=== PATIENT | male | born 1980 | race Caucasian/White ===

== ENCOUNTER 2021-11-11 08:57 | Outpatient (REF) | payer OTHER, SELFPAY ==
[2021-11-11 09:24] LABS: MANUAL DIFF FLAG NO
[2021-11-11 09:34] LABS: Basophils Percent Auto 0.6 % (0-2); Eosinophils Absolute Auto 0.1 X10*3/uL (0.0-0.4); Eosinophils Percent Auto 1.8 % (0-4); Hemoglobin 14.4 g/dl (14.0-18.0); Imm Gran Abs Auto 0.01 X10*3/uL (0.00-0.03); Imm Gran Pct Auto 0.2 % (0.0-0.4); Lymphocytes Absolute Auto 1.1 X10*3/uL (1.2-4.9); Lymphocytes Percent Auto 20.9 % (20-40); Mean Corpuscular HGB Conc 35.1 g/dl (31.0-36.0); Mean Corpuscular Hemoglobin 29.3 pg (27.0-33.0); Mean Corpuscular Volume 83.3 fL (80.0-98.0); Mean Platelet Volume 9.2 fL (9.4-12.4); Monocytes Absolute Auto 0.4 X10*3/uL (0.1-1.2); Monocytes Percent Auto 6.9 % (2-11); Neutrophils Absolute Auto 3.5 x10*3/uL (2.0-8.3); Neutrophils Percent Auto 69.6 % (45-73); Red Blood Count 4.92 X10*6/uL (4.60-5.80); Red Cell Distribution Width 13.9 % (11.0-16.0); White Blood Count 5.1 X10*3/uL (4.8-10.8)
[2021-11-11 09:35] LABS: Platelet Count 80 X10*3/uL (160-400)
[2021-11-11 09:43] LABS: Estimated Average Glucose 94 mg/dL; Hemoglobin A1c % 4.9 %
[2021-11-11 10:50] LABS: Alanine Aminotransferase 35 U/L (0-40); Alkaline Phosphatase 34 U/L (39-117); Anion Gap 12 (12-20); Aspartate Amino Transferase 21 U/L (5-37); Bilirubin Total 1.5 mg/dL (0.0-1.0); Blood Urea Nitrogen 16 mg/dL (9-16); Calcium 9.1 mg/dL (8.4-10.2); Carbon Dioxide 25 mmol/L (22-29); Cholesterol 125 mg/dL; Estimated Glomerular Filt Rate > 60; Glucose Random 113 mg/dL (60-115); HDL Cholesterol 33 mg/dL; LDL Cholesterol Calculated 73 mg/dl; Triglycerides 98 mg/dL
[2021-11-11 10:56] LABS: Albumin Level 4.4 g/dL (3.5-5.0); Potassium 4.6 mmol/L (3.3-5.1); Sodium 138 mmol/L (135-145)
[2021-11-11 11:09] LABS: Chloride 106 mmol/L (96-108)
== END 2021-11-11 08:58 | disposition home or self-care (01) ==
LOC: HO.LAB 08:57
PROVIDERS: PCP Family Medicine; Visit Provider Family Medicine
DX: K76.0 Fatty (change of) liver, not elsewhere classified (principal)
CPT/HCPCS: 36415; 80053; 80061; 83036; 85025

== ENCOUNTER 2023-01-07 09:18 | Outpatient (REF) | payer OTHER, SELFPAY ==
[2023-01-07 09:40] LABS: MANUAL DIFF FLAG NO
[2023-01-07 09:52] LABS: Basophils Percent Auto 0.8 % (0-2); Eosinophils Absolute Auto 0.1 X10*3/uL (0.0-0.4); Eosinophils Percent Auto 1.6 % (0-4); Hematocrit 43.1 % (42.0-52.0); Hemoglobin 15.3 g/dl (14.0-18.0); Imm Gran Abs Auto 0.02 X10*3/uL (0.00-0.03); Imm Gran Pct Auto 0.4 % (0.0-0.4); Lymphocytes Absolute Auto 1.2 X10*3/uL (1.2-4.9); Lymphocytes Percent Auto 23.9 % (20-40); Mean Corpuscular HGB Conc 35.5 g/dl (31.0-36.0); Mean Corpuscular Hemoglobin 29.7 pg (27.0-33.0); Mean Corpuscular Volume 83.7 fL (80.0-98.0); Mean Platelet Volume 10.1 fL (9.4-12.4); Monocytes Absolute Auto 0.3 X10*3/uL (0.1-1.2); Monocytes Percent Auto 6.5 % (2-11); Neutrophils Absolute Auto 3.4 x10*3/uL (2.0-8.3); Neutrophils Percent Auto 66.8 % (45-73); Red Blood Count 5.15 X10*6/uL (4.60-5.80); Red Cell Distribution Width 13.9 % (11.0-16.0); White Blood Count 5.1 X10*3/uL (4.8-10.8)
[2023-01-07 09:54] LABS: Platelet Count 88 X10*3/uL (160-400)
[2023-01-07 10:13] LABS: Cholesterol 128 mg/dL; HDL Cholesterol 31 mg/dL; LDL Cholesterol Calculated 75 mg/dl; Triglycerides 114 mg/dL
[2023-01-07 10:35] LABS: HBsAGNum1 0.46 S/CO (0.00-0.99); HIV AB/AG Nonreactive (Nonreactive); HIV Num 1 0.09 S/CO (0.00-0.99); Hepatitis B Surface Antigen Negative (Negative)
== END 2023-01-07 09:19 | disposition home or self-care (01) ==
LOC: HO.LAB 09:18
PROVIDERS: PCP Family Medicine; Visit Provider Family Medicine
DX: Z11.4 Encounter for screening for human immunodeficiency virus [HIV] (principal); Z11.59 Encounter for screening for other viral diseases; K76.0 Fatty (change of) liver, not elsewhere classified
CPT/HCPCS: 36415; 80061; 85025; 87340; 87389

== ENCOUNTER 2023-04-01 10:04 | Outpatient (AMB) | payer OTHER, SELFPAY ==
--- NOTE | 2023-04-01 10:24 | AM.OFFWIN_ITS ---
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 Patient is reporting pain in the right calf over the past week. 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 Patient recently started jogging and was noticing pain over the calf. Last night he woke up with cramping sensation in the right calf. [facility] Social History Patient Tobacco Use Status: Never used Tobacco Physical Exam Vital Signs: Last Vital Signs Temp 97.9 F 04/01/23 10:27 Pulse 66 04/01/23 10:27 BP 110/72 04/01/23 10:27 Pulse Ox 97 04/01/23 10:27 Oxygen Delivery Method Room Air 04/01/23 10:27 Extrem Other: Right leg: No visible bruising all over the calf area. Minimal discomfort. Unable to stand on 1 leg on the right side. Unable to stand on his toes on the right leg. Assessment & Plan Assessment & Plan (1) Strain of right calf muscle: Code(s): S86.811A - Strain of other muscle(s) and tendon(s) at lower leg level, right leg, initial encounter Plan: Anti-inflammatory called in. Keep leg elevated. Patient was encouraged to rest. Coding Level of Care Code Est Pt Level 3 (64292) Diagnoses Strain of right calf muscle S86.811A
[2023-04-01 10:27] VITALS: BP 110/72; PULSE 66; TEMP 36.6; O2SAT 97
== END 2023-04-01 11:36 | disposition home or self-care (01) ==
PROVIDERS: PCP Family Medicine; Visit Provider Internal Medicine
DX: S86.811A Strain of other muscle(s) and tendon(s) at lower leg level, right leg, initial encounter (principal)
CPT/HCPCS: 99213

== ENCOUNTER 2023-11-03 13:51 | Outpatient (REF) | payer OTHER, SELFPAY ==
--- NOTE | ~2023-11-03 | US_ITS ---
EXAMINATION: US SOFT TISSUE OF THE NECK CLINICAL INFORMATION: Suspected lipoma, neck mass right side. COMPARISON: None available. TECHNIQUE: Linear transducer grayscale and color Doppler examination of the right mid lateral neck lump. FINDINGS: The cutaneous, subcutaneous, muscular and fascial planes are unremarkable. No mass or fluid collection is seen. No lymphadenopathy is noted. No foreign body is seen. US/US soft tiss head and/or neck IMPRESSION: Unremarkable examination, without focal finding noted.
== END 2023-11-03 13:52 | disposition home or self-care (01) ==
LOC: HO.US 13:51
PROVIDERS: PCP Family Medicine; Visit Provider Family Medicine
DX: R22.1 Localized swelling, mass and lump, neck (principal)
CPT/HCPCS: 76536

== ENCOUNTER 2024-03-09 07:00 | Outpatient (RCR) | payer OTHER, SELFPAY | END 2024-03-09 10:24 | disposition home or self-care (01) | LOC: HO.OT 07:00 | PROVIDERS: PCP Family Medicine; Visit Provider Family Medicine | DX: M77.11 Lateral epicondylitis, right elbow (principal) | CPT/HCPCS: 97033; 97110; 97140; 97165 ==

== ENCOUNTER 2025-03-18 14:40 | Outpatient (AMB) | payer OTHER, SELFPAY ==
--- NOTE | 2025-03-18 14:43 | A.OFFVIS_ITS ---
Vital Signs 03/18/25 14:50 Height 6 ft Weight 270 lb BMI 36.6 BP 126/62 Blood Pressure Location Rt brachial Position Sitting Pulse 64 Pulse Source Pulse Oximeter Pulse Oximetry (%) 98 Oxygen Delivery Method Room Air Intake Visit Reasons: Colonoscopy screening Intake Note: New pt for initial colo screening. CC; Pt denies any GI sx or concerns at this time. No pertinent FMHx. reported per pt. 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 male with past medical history of splenomegaly, hepatomegaly, thrombocytopenia is here today for pre colonoscopy screening.? Patient was sent to us by his PCP.? This is his first colonoscopy screening.? Patient denies any gastrointestinal symptoms in the past or at present.? Denies any personal or family history of gastrointestinal disease, colon polyps, or CRC.? Patient reports that he was previously seen by Dr. Zacarias in the office and evaluated for enlarged liver and spleen and low platelet count. Patient has a family history of liver disease. Denies history of difficulty with sedation or anesthesia in the past.? Negative for history of sleep apnea.? Patient reports snoring during the night. Denies any history of cardiac, renal, pulmonary, or hepatic disease.?? No history of infectious? diseases like hepatitis A, B, C, HIV or tuberculosis.? Patient is not on any anticoagulation [facility] Medical History (Updated 03/18/25 @ 15:15 by Randi Cleary, [facility]) Splenomegaly Hepatomegaly Social History Patient Tobacco Use Status: Never used Tobacco Review of Systems Const Denies weight gain and Denies weight loss ENT Reports no additional complaints, Denies dysphagia and Denies odynophagia Card Reports no additional complaints Resp Reports no additional complaints GI Denies abdominal pain, Denies belching, Denies melena, Denies bloating, Denies change in bowel habits, Denies dysphagia, Denies excessive flatus, Denies dyspepsia, Denies heartburn, Denies diarrhea, Denies loose stools, Denies nausea, Denies odynophagia and Denies vomiting Reports no additional complaints Musc Reports no additional complaints Neuro Reports no additional complaints Psych Reports no additional complaints Endo Reports no additional complaints Physical Exam Vital Signs: Last Vital Signs Pulse 64 03/18/25 14:50 BP 126/62 03/18/25 14:50 Pulse Ox 98 03/18/25 14:50 Oxygen Delivery Method Room Air 03/18/25 14:50 BMI result Body Mass Index 36.6 Const General: healthy appearing, no acute distress and well developed Nutritional Appearance: well nourished Orientation/consciousness: patient oriented x3 HEENT Head: Yes normal to inspection, Yes normocephalic and Yes atraumatic Face and sinus: Yes normal facial exam Mouth: Normal oral and palatal mucosa present Throat: Yes posterior oropharynx normal, Yes tonsils normal and Yes uvula midline Eyes General: appearance normal, both eyes and all related structures Neck Neck: Yes normal visual inspection, Yes full ROM and Yes trachea midline Thyroid: Thyroid normal Resp Effort & Inspection: normal respiratory effort, able to speak in complete sentences, no tracheal deviation and symmetric chest movement Auscultation: clear to auscultation bilaterally Cardio Jugular venous distension: no JVD Rate: regular rate Heart sounds: S1 normal heart sound present, S2 normal heart sound present, no gallops and no murmurs GI Inspection: Yes normal to inspection and No distended Palpation (GI): Soft to palpation, not firm, nontender and No hepatosplenomegaly present Auscultation: normal bowel sounds General: Yes no CVA tenderness Back/Spine/Pelvis Back: no CVA tenderness Skin General skin exam: elasticity normal, turgor normal and dry skin Neuro General: patient oriented x3 Psych Appearance: grossly normal Mental Status: mental status grossly normal Speech and movement: Normal speech and movement present Affect: normal affect Attitude: cooperative Thought process: Normal thought process present Thought content: Normal thought content present Insight: Good insight present (Psych) Judgement: Good judgement present (Psych) Assessment & Plan Assessment & Plan (1) Screen for colon cancer: Code(s): Z12.11 - Encounter for screening for malignant neoplasm of colon (2) Hepatomegaly: Code(s): R16.0 - Hepatomegaly, not elsewhere classified Category: Medical (3) Splenomegaly: Code(s): R16.1 - Splenomegaly, not elsewhere classified Category: Medical Plan Patient denies any GI, cardiac or respiratory symptoms.? Previously seen in GI by Dr. Zacarias for hepatomegaly, splenomegaly and thrombocytopenia. We will repeat blood work as well as ultrasound with elastography. Denies any issues with anesthesia in the past.? Denies any history of sleep apnea.? No history infectious diseases in the past or present.? Not on any anticoagulation therapy.? No family or personal history of colon cancer or polyps.? Patient denies melena, hematochezia, unintentional weight loss or ribbon like stools.? Discussed at length the pre-procedure,? prep, diet & medications as well as what to expect prior, during and after the procedure.?? Stressed the importance of good bowel prep.? Recommended the use of Vaseline or Calmoseptine OTC & baby wipes with bowel movements to promote comfort.? ?Patient verbalizes understanding and agrees to plan of care.? He was given the opportunity to ask questions and all questions answered.? We will see him after the procedure.? Orders: Orders Complete Blood Count no Diff Today K21.9 - Gastro-esophageal reflux disease without esophagitis US abdomen comp w elastography Today R79.89 - Other specified abnormal findings of blood chemistry Comprehensive Met. Panel Today K21.9 - Gastro-esophageal reflux disease without esophagitis Medications: New bisacodyl (Dulcolax (bisacodyl)) take 4 tabs at noon the day before your colonoscopy 20 mg (4 x 5 mg) PO ONCE 4 tabs 0RF constipation 1 day Z12.11 - Encounter for screening for malignant ne oplasm of colon polyethylene glycol 3350 (Miralax) As directed by gastroenterology department at [facility] 238 grams PO ONCE 238 grams 0RF Z12.11 - Encounter for screening for malignant neoplasm of colon Coding Level of Care Code New Pt Level 3 (92587) Diagnoses Screen for colon cancer Z12.11 Hepatomegaly R16.0 Splenomegaly R16.1 Time Spent (min) 40 Comment 30 minutes spent with patient and additional 10 minutes spent reviewing his records
[2025-03-18 14:50] VITALS: BP 126/62; PULSE 64; O2SAT 98; BMI 36.6
== END 2025-03-18 15:29 | disposition home or self-care (01) ==
LOC: HO.HGI 14:41
PROVIDERS: PCP Family Medicine; Visit Provider Nurse Practitioner Family
DX: Z01.818 Encounter for other preprocedural examination (principal); Z12.11 Encounter for screening for malignant neoplasm of colon; R16.0 Hepatomegaly, not elsewhere classified; R16.1 Splenomegaly, not elsewhere classified
CPT/HCPCS: S0285

== ENCOUNTER 2025-05-21 08:11 | Outpatient (REF) | payer OTHER, SELFPAY ==
--- NOTE | ~2025-05-21 | US_ITS ---
EXAMINATION: US COMPLETE ABDOMEN WITH LIVER ELASTOGRAPHY CLINICAL INFORMATION: Abnormal LFTs. COMPARISON: Ultrasound abdomen complete with liver Elastography 02/28/2019 TECHNIQUE: Real-time imaging of the abdominal viscera. Noninvasive ultrasound liver fibrosis assessment is performed using Ashley ElastPQ point quantification shear wave elastography (pSWE) with a C5-2 MHz transducer. Multiple elastography samples are obtained. FINDINGS: PANCREAS: The pancreas is obscured by overlying gas. ABDOMINAL AORTA: No aortic aneurysm is seen. INFERIOR VENA CAVA: Visualized portions are normal. LIVER: The liver demonstrates normal size, contour and increased echogenicity with areas of focal fatty sparing. No focal solid lesion or intrahepatic biliary duct dilatation. The right lobe measures 16.8 cm in length. Previously measured 17.4 cm. The left lobe measures 9.8 cm in length. Previously it measured 10.9 cm in length Portal flow is hepatopedal Shear wave liver elastography median stiffness is 1.79 m/s (reference: normal median stiffness is 1.3 m/s or less). Previously median stiffness measurement 1.13 cm/sec. IQR/median stiffness to assess sampling precision is 0.09 (reference: good quality data set is IQR/median stiffness of 0.15 or less). GALLBLADDER: There are multiple echogenic gallstones without wall thickening. Wall thickness measures 0.2 cm. No pericolic gallbladder fluid collection seen.. COMMON BILE DUCT: Normal in caliber measuring 0.6 cm in diameter. RIGHT KIDNEY: No hydronephrosis. No renal calculi or focal parenchymal lesions. The kidney measures 10.9 cm in maximum dimension. LEFT KIDNEY: No hydronephrosis. No renal calculi or focal parenchymal lesions. The kidney measures 10.7 cm in maximum dimension. SPLEEN: Unremarkable. The spleen measures 20.1 cm in maximum dimension. FREE FLUID: None seen. US/US abdomen comp w elastography IMPRESSION: 1. Diffuse fatty infiltration with areas of focal sparing.. 2. Liver elastography: Median liver stiffness measures 1.79 suggestive of cACLD. REFERENCE: Society of Radiologists in Ultrasound Liver Stiffness Thresholds (2019): LIVER STIFFNESS THRESHOLDS: *Liver Stiffness equal or less than 1.3 m/s: High probability of being normal. *Liver Stiffness less than 1.7 m/s: In the absence of other known clinical signs, rules out compensated advanced chronic liver disease. *Liver Stiffness 1.7-2.1 m/s: Suggestive of compensated advanced chronic liver disease but need further test for confirmation. *Liver Stiffness over 2.1 m/s: Rules in compensated advanced chronic liver disease. *Liver Stiffness over 2.4 m/s: Suggestive of clinically significant portal hypertension. QUALITY OF DATA SET: *IQR/Median value equal or less than 0.15 implies a quality data set. *IQR/Median value over 0.15 implies a poor quality data set. SIGNIFICANT CHANGE FROM PRIOR EXAM: Significant change if liver stiffness measurement is 10% or greater from prior exam. OTHER CONSIDERATIONS: The stage of liver fibrosis may be overestimated in the setting of acute hepatitis, liver inflammation, elevated liver function tests, hepatic vascular congestion, obstructive cholestasis, non-fasting state, and infiltrative diseases such as amyloidosis and lymphoma. In some patients with NAFLD, the liver stiffness thresholds for compensated advanced chronic liver disease may be lower. In causes other than viral hepatitis and NAFLD, liver stiffness thresholds are not well established. Electronically signed by: Chance Johnson MD 05/21/2025 02:35 PM EDT
[2025-05-21 08:39] LABS: Hematocrit 36.7 % (42.0-52.0); Hemoglobin 13.7 g/dl (14.0-18.0); Mean Corpuscular HGB Conc 37.3 g/dl (31.0-36.0); Mean Corpuscular Hemoglobin 30.9 pg (27.0-33.0); Mean Corpuscular Volume 82.7 fL (80.0-98.0); NRBC Abs Auto 0.000 X10*3/uL (0.0-0.012); NRBC Pct Auto 0.0 /100WBC (0.0-0.2); Red Blood Count 4.44 X10*6/uL (4.60-5.80); White Blood Count 4.2 X10*3/uL (4.8-10.8)
--- OUTSIDE RECORDS SUMMARY | 2025-05-21 08:43 | XMS_ITS | Clinical Summary ---
Author Organization [facility] Address [address] [place] [id number] Phone Care Team Providers Care Spot Billing Clerk Name Role Phone Ledy Reilly MD, MPH Primary Care Provid er Allergies No known active allergies Medications methylphenidate HCl 27 MG ER tablet Take 1 tablet (27 mg total) by mouth every morning. 28 tablet 11/29/2023 Active Active Problems Problem Noted Date Diagnosed Date Migraine with aura 02/29/2024 Assessment & Plan (02/29/2024 3:37 PM EDT): Currently managed with PRN NSAIDs. Reviewed when to reach out for other treatment options. Chronic insomnia 08/17/2023 Low HDL (under 40) 04/19/2023 Assessment & Plan (04/19/2023 10:02 PM EDT): Note on lab says assay may be falsely low in liver disease but doesn't specify what types are included. I do suspect this is his true value or near it. Balanced by low LDL so no meds indicated. Continue focusing on more plant-based and fish diet, exercising regularly. Thrombocytopenia due to hypersplenism 12/11/2021 Overview (11/26/2022): Related to hepatic congestion Plts 80 in 2020, reported baseline per pt Had a reaction to platelet transfusion that was given before appendectomy (hives) Assessment & Plan (12/11/2021 11:32 AM EDT): Remains around baseline Witnessed apneic spells 05/28/2021 Assessment & Plan (06/13/2022 11:57 PM EDT): Not currently happening, likely related to weight loss. Continue to monitor for recurrence Assessment & Plan (12/11/2021 11:37 AM EDT): Encouraged to see sleep med when feeling up to it. Weight loss may be sufficient however so keep up the good work on that front! Assessment & Plan (05/28/2021 8:52 PM EDT): Needs sleep study. Referral to [facility] Sleep Med. If he has untreated JOSE CARLOS, which it seems likely he does, this may help with attention/focus at work, weight loss, fatty liver disease, etc. We will follow up in a few months after his sleep study to reassess some of these issues Attention deficit hyperactivity disorder (ADHD) 05/28/2021 Overview (05/28/2021): Prior ADHD diagnosis Assessment & Plan (02/29/2024 3:38 PM EDT): Cont methylphenidate ER 27mg daily Assessment & Plan (12/12/2023 2:57 PM EDT): Controlled if taking. Assessment & Plan (04/19/2023 10:04 PM EDT): Improved but not well controlled yet. Will trial switch to ER with slight dose increase. No adverse effects at this time. F/u 1 month. CSRP next visit. Assessment & Plan (11/26/2022 3:29 PM EST): Currently feeling poorly controlled despite lots of self-established systems for compensation. Discussed doing a re-trial of ritalin. Send me prior ritalin dose and we will try that dose to start, f/u 2 months. Anxiety state 05/28/2021 Assessment & Plan (12/11/2021 11:36 AM EDT): If these trauma-triggered responses continue, might benefit from a short course of EMDR therapy. Overall this is manageable and only triggered the one so far, but if it becomes more of a problem, would think about pursuing this. Assessment & Plan (05/28/2021 8:55 PM EDT): Largely related to Covid and work related risks. Will monitor. Can discuss meds PRN. Feels inattention predated this, although this is certainly not helping. Fatty liver determined by biopsy 05/27/2021 Assessment & Plan (11/26/2022 3:30 PM EST): LFTs ordered with labs previously. Discussed this as main reason to keep an eye on his weight. Assessment & Plan (12/11/2021 11:33 AM EDT): LFTs remain wnl, has lost some weight. Family history of diabetes mellitus 05/27/2021 Assessment & Plan (12/11/2021 11:36 AM EDT): A1c wnl. Immunizations Immunization Administration Dates Next Due COVID-19 (Pre-07/11) Pfizer Vaccine, mRNA, PF 10/03/2020,09/11/2020 DT 09/24/1992 DTP 09/28/1983, 0,1979,06/27,1979 Hepatitis B Adult 11/30/2010 Hepatitis B, unspecified formulation 06/30/2010, 05/15/2010 INFLUENZA, SPLIT VIRUS, TRIVALENT PF 07/18/2024 INFLUENZA, SPLIT VIRUS, TRIV ALENT W/ PRESERVATIVE IM 07/16/2016,07/24/2010 Influenza Quadrivalent Prese rvative Free IM 07/04/2023,07/07/2022,07/17/2019 Influenza Quadrivalent w/ Pr eservative IM 07/15/2017 MMR 05/19/1992,05/28/1980 Meningococcal MCV4P 05/18/2010 PPD Test 05/15/2010 Polio, Unspecified Formulation 4,08/19/1980,1979,06/27,1979 Td (adult) 5 Lf Tetanus Toxo id, PF, Adsorbed 06/06/2016 Tdap 05/15/2010 Family History Medical History Relation Comments Obesity Brother Diabetes Father Diabetes Mother Other Mother fatty liver (Sic gavino) Relation Status Comments Brother Alive Father Alive Mother Social History Tobacco Use Types Packs/Day Years Used Date Smoking Tobacco: Never Passive Smoke Exposure: Never Smokeless Tobacco: Never Tobacco Cessation:Counseling Given: Not Answered Alcohol Use Standard Drinks/Week Comments Yes 0 (1 standard drink = 0.6 oz pur e alcohol) 2/3 per weekend per month Child or Family Care Answer Date Record ed Do you have problems with on e of the following making it difficult for you to work, study, or receive health care? No 02/29/2024 Education Answer Date Recorded Are you interested in help w ith more adult education (for example, completing high school, GED, job training, learning the [place] language, technical skills, or developing parenting skills)? No 02/29/2024 Are you concerned about learning? Not on file 02/29/2024 No 02/29/2024 Yes 02/29/2024 Food Answer Date Recorded Within the past 6 months we worried whether our food would run out before we got money to buy more. Never True 02/29/2024 Within the past 6 months the food we bought just didn't last and we didn't have enough money to get more. Never True Residential Stability Answer Date Recor ded What is your housing situation today? I have becky rascon 02/29/2024 How many times have you moved in the past 12 tue th? One time 02/29/2024 Paying for Meds Answer Date Recorded Do you have trouble paying for medicines? No 02/29/2024 Paying Utility Bills Answer Date Record ed Do you have trouble paying your heating or elect ricity bill? No 02/29/2024 Transportation Answer Date Recorded Has the lack of transportati on kept you from medical appointments or from getting medications? No 02/29/2024 Unemployment Answer Date Recorded Are you currently unemployed or working on a part-time or temporary basis, and looking for work? No 02/29/2024 Digital Access Answer Date Recorded No 02/29/2024 Yes 02/29/2024 Do you have reliable internet access at home? Ye s 02/29/2024 Do you have a device (e.g., phone, tablet, computer) with a working camera? Yes 02/29/2024 Intimate Partner Violence Answer Date R ecorded Denied Basic Needs Not on file 02/29/2024 In the past 12 months have y ou been in a relationship with a person who hurts, threatens, or tries to control you? No 02/29/2024 Worried food would run out Not on file 02/28 In the past 12 months have y ou been in a relationship with a person who hurts, threatens, or tries to control you? No 02/29/2024 Sex and Gender Information Value Date Recorded Sex Assigned at Not on file Legal Sex Male 9:24 PM EDT Gender Identity Not on file Sexual Orientation Not on file Last Filed Vital Signs Vital Sign Reading Time Taken Comments Blood Pressure 118/73 02/29/2024 2:46 PM EDT Pulse 67 02/29/2024 2:46 PM EDT Temperature 36.7 C (98 F) 04/19/2023 3:42 PM EDT Respiratory Rate - - Oxygen Saturation 98% 02/29/2024 2:46 PM EDT Inhaled Oxygen Concentration - - Weight 122.6 kg (270 lb 3.2 oz) 02/29/2024 2:46 PM EDT Height 184.4 cm (6' 0.6 ) 02/29/2024 2:46 PM EDT w/ shoes Body Mass Index 36.04 02/29/2024 2:46 PM EDT Plan of Treatment Health Maintenance Due Date Last Done Comments LIPID PANEL 1979 HEPATITIS C SCREENING 1997 HIV ONE-TIME SCREENING (18-65 YEARS) 1997 SCREENING FOR DIABETES 2014 COLOGUARD 02/12/2024 COLONOSCOPY 02/12/2024 COLORECTAL CANCER SCREENING 02/12/2024 FIT TEST 02/12/2024 FOBT 02/12/2024 SIGMOIDOSCOPY 02/12/2024 VIRTUAL COLONOSCOPY 02/12/2024 DEPRESSION SCREENING 02/28/2025 02/29/2024 INFLUENZA VACCINE (#1) 2025 4, 07/04/2023, 07/07/2022, Additional history exists Adult Td,Tdap Booster 06/06/2026 06/06/2016, 010 MENINGOCOCCAL VACCINES (ACWY) Aged Out 05/18/2010 No longer eligible based on patient's age to complete this topic COVID-19 VACCINE Completed 07/09/2024, , 10/03/2020, Additional history exists SMOKING STATUS SCREENING (Once After 26 Yrs) Completed 08/30/2024 HEPATITIS A VACCINES Aged Out No long er eligible based on patient's age to complete this topic HIB VACCINES Aged Out No longer eligi ble based on patient's age to complete this topic MENINGOCOCCAL VACCINES (B) Aged Out N o longer eligible based on patient's age to complete this topic PNEUMOCOCCAL VACCINES (0-49 years) Aged Out No longer eligible based on patient's age to complete this topic Medical Devices Not on file Insurance [employer] [address] [address] [address] [employer] [address] [address] [employer] [address] [address] [employer] B[employer] B[employer] Care Teams Spot Billing Clerk Relationship Specialty Start Date End Date Ledy Reilly MD, MPH [address] [place] [address] [email or web address] PCP - General Family Medicine 05/27/21 Additional Source Comments The information contained in this document represents components of the legal health record. It is not the complete legal health record.[facility]
[2025-05-21 08:59] LABS: Alanine Aminotransferase 58 U/L (0-40); Albumin Level 4.6 g/dL (3.5-5.0); Alkaline Phosphatase 43 U/L (39-117); Anion Gap 8 (12-20); Aspartate Amino Transferase 32 U/L (5-37); Blood Urea Nitrogen 17 mg/dL (9-16); Calcium 8.8 mg/dL (8.4-10.2); Carbon Dioxide 28 mmol/L (22-29); Chloride 107 mmol/L (96-108); Estimated Glomerular Filt Rate > 60; Platelet Count 75 X10*3/uL (160-400); Potassium 4.4 mmol/L (3.3-5.1); Sodium 139 mmol/L (135-145); Total Protein 6.7 g/dL (6.5-8.0)
== END 2025-05-21 08:12 | disposition home or self-care (01) ==
LOC: HO.US 08:11
PROVIDERS: PCP Family Medicine; Visit Provider Nurse Practitioner Family
DX: K21.9 Gastro-esophageal reflux disease without esophagitis (principal); R79.89 Other specified abnormal findings of blood chemistry
CPT/HCPCS: 36415; 76700; 76981; 80053; 85027

== ENCOUNTER → 2025-05-21 08:39 | Outpatient (BNV) | payer OTHER, SELFPAY | PROVIDERS: PCP Family Medicine; Visit Provider Radiology Diagnostic Radiology | DX: K76.0 Fatty (change of) liver, not elsewhere classified (principal) | CPT/HCPCS: 76700 ==

== ENCOUNTER → 2025-06-13 15:00 | Outpatient (BNV) | payer OTHER, SELFPAY | PROVIDERS: PCP Family Medicine; Visit Provider Internal Medicine Medical Oncology | DX: D61.818 Other pancytopenia (principal) | CPT/HCPCS: 99204 ==